=== PATIENT | female | born 1955 | race Hispanic/Latino ===

== ENCOUNTER 2018-07-27 11:40 | Emergency (ER) | payer OTHER ==
--- NOTE | 2018-07-27 13:28 | RAD REPORT ---
EXAM DESCRIPTION: RAD - Shoulder Left 2 View - 07/27/2018 12:42 pm CLINICAL HISTORY: Left shoulder pain status post fall FINDINGS: No fracture or dislocation is seen. Moderate osteoarthritis involves the AC joint
[2018-07-27] MEDS ORDERED: HYDROCODONE/APAP 10/325 TAB ONE (13:47)
--- NOTE | 2018-07-27 13:48 | ER ---
Nurse's Notes [facility] Name: Modesta Dior Age: 63 yrs Sex: Female : 1955 Arrival Date: 07/27/2018 Time: 11:42 Bed 23 Private MD: Diagnosis: Fall due to bumping against object;Shoulder lesion, unspecified, left shoulder;Essential (primary) hypertension Presentation: 07/27 12:15 Presenting complaint: Patient states: Reports slip and fall while walking today 2 hours aj [employer]. Patient reports trying to catch herself with her left arm and now has pain in left shoulder. Care prior to arrival: None. Mechanism of Injury: Fall from standing position. Trauma event details: Injury occurred in the [facility], Injury occurred: on a street or highway. Injury occurred: July 27, 2018 Injury occurred at: 10:15. 12:15 Acuity: MAIDA 2 aj 12:15 Method Of Arrival: Ambulatory aj 16:38 Transition of care: patient was not received from another setting of care. Onset of tl3 symptoms was July 27, 2018. Risk Assessment: Do you want to hurt yourself or someone else? Patient reports no desire to harm self or others. Initial Sepsis Screen: Does the patient meet any 2 criteria? No. Patient's initial sepsis screen is negative. Does the patient have a suspected source of infection? No. Patient's initial sepsis screen is negative. Trauma Activation: Not Applicable Physician: ED Physician; Name: ; Notified At: ; Arrived At: Physician: General Surgeon; Name: ; Notified At: ; Arrived At: Physician: Radiology; Name: ; Notified At: ; Arrived At: Physician: Respiratory; Name: ; Notified At: ; Arrived At: Physician: Lab; Name: ; Notified At: ; Arrived At: Historical: - Allergies: 12:18 No Known Allergies; aj - Home Meds: 12:18 None [Active]; aj - PMHx: 12:18 Hypertension; aj - PSHx: 12:18 None; aj - Immunization history: Last tetanus immunization: unknown. - Social history:: Smoking status: Patient/guardian denies using tobacco. - Ebola Screening: : Patient negative for fever greater than or equal to 101.5 degrees Fahrenheit, and additional compatible Ebola Virus Disease symptoms Patient denies exposure to infectious person Patient denies travel to an Ebola-affected area in the 21 days before illness onset No symptoms or risks identified at this time. Screenin:32 Abuse screen: Denies threats or abuse. Nutritional screening: No deficits noted. tl3 Tuberculosis screening: No symptoms or risk factors identified. Fall Risk Fall in past 12 months (25 points). Primary Survey: 12:15 NO uncontrolled hemorrhage observed. Breathing/Chest: Respiratory pattern: regular, aj Respiratory effort: spontaneous, unlabored. Circulation: Skin color: Skin temperature: warm, dry. Disability Alert. Assessment: 12:15 General: Appears in no apparent distress. comfortable, Behavior is calm, cooperative, aj appropriate for age. Pain: Complains of pain in anterior aspect of left shoulder and posterior aspect of left shoulder. Neuro: Level of Consciousness is awake, alert, obeys commands, Oriented to person, place, time, situation, Appropriate for age. Respiratory: Airway is patent Respiratory effort is even, unlabored, Respiratory pattern is regular, symmetrical. Derm: Skin is intact, is healthy with good turgor, Skin is pink, warm \T\ dry. normal. Musculoskeletal: Reports pain in anterior aspect of left shoulder and posterior aspect of left shoulder. 13:32 Reassessment: Patient and/or family updated on plan of care and expected duration. Pain tl3 level reassessed. Patient is alert, oriented x 3, equal unlabored respirations, skin warm/dry/pink. pt placed in room 23, Dr Sibley at bedside for assessment, X ray completed in triage. 15:30 Reassessment: Patient and/or family updated on plan of care and expected duration. Pain tl3 level reassessed. Patient is alert, oriented x 3, equal unlabored respirations, skin warm/dry/pink. blood pressure decreased. Vital Signs: 12:15 BP 204 / 107; Pulse 77; Resp 20; Temp 97.5; Pulse Ox 99% on R/A; Weight 68.04 kg; aj Height 4 ft. 11 in. (149.86 cm); 15:30 BP 197 / 111; Pulse 82; Resp 18; Pulse Ox 100% on R/A; tl3 12:15 Body Mass Index 30.30 (68.04 kg, 149.86 cm) aj Sae Coma Score: 12:15 Eye Response: spontaneous(4). Verbal Response: oriented(5). Motor Response: obeys aj commands(6). Total: 15. Trauma Score (Adult): 12:15 Eye Response: spontaneous(1); Verbal Response: oriented(1); Motor Response: obeys aj commands(2); Systolic BP: > 89 mm Hg(4); Respiratory Rate: 10 to 29 per min(4); Sae Score: 15; Trauma Score: 12 ED Course: 11:42 Patient arrived in ED. mr 12:16 Triage completed. aj 12:18 Arm band placed on right wrist. Patient placed in waiting room, Patient notified of aj wait time. X-ray ordered. 12:39 X-ray completed. Patient tolerated procedure well. sg4 12:41 XRAY Shoulder LEFT 2 view In Process Unspecified. EDMS 13:27 Bj iSbley MD is Attending Physician. [facility] 13:30 Dorene Pereira, SCOTT is Primary Nurse. tl3 13:32 Patient has correct armband on for positive identification. Adult w/ patient. tl3 13:32 No provider procedures requiring assistance completed. tl3 13:45 Torrey Al MD is Referral Physician. [facility] 15:30 Patient did not have IV access during this emergency room visit. tl3 Administered Medications: 13:37 Drug: Man 10 mg-325 mg 1 tabs Route: PO; tl3 16:34 Follow up: Response: No adverse reaction tl3 14:00 Drug: cloNIDine 0.1 mg Route: PO; tl3 15:00 Follow up: Response: Blood pressure is lowered tl3 14:00 Drug: Norvasc 5 mg Route: PO; tl3 16:35 Follow up: Response: Blood pressure is lowered tl3 Outcome: 13:46 Discharge ordered by . [facility] 15:30 Discharged to home ambulatory. tl3 15:30 Condition: stable 15:30 Discharge instructions given to patient, Instructed on discharge instructions, follow up and referral plans. medication usage, Demonstrated understanding of instructions, follow-up care, medications, Prescriptions given X 2. 16:38 Patient left the ED. tl3 Signatures: Dispatcher [employer] EDMS Elma Daniel, RN Bj Castro MD MD cha Rivera, Mary mr Dorene Pereira RN RN tl3 Dyan Pyle sg4
--- NOTE | 2018-07-27 13:48 | EDPHYS ---
Physician Documentation [facility] Name: Modesta Dior Age: 63 yrs Sex: Female : 1955 Arrival Date: 07/27/2018 Time: 11:42 Bed 23 Private MD: ED Physician Bj Sibley HPI: 07/27 13:41 This 63 yrs old Female presents to ER via Ambulatory with complaints of Fall frankie Injury. 13:41 Details of fall: The patient fell from an upright position, while walking. Onset: The frankie symptoms/episode began/occurred yesterday. Associated injuries: The patient sustained anterior aspect of left shoulder and posterior aspect of left shoulder, decreased range of motion, painful injury. Severity of symptoms: At their worst the symptoms were mild, moderate, in the emergency department the symptoms are unchanged. The patient has not experienced similar symptoms in the past. Historical: - Allergies: 12:18 No Known Allergies; aj - Home Meds: 12:18 None [Active]; aj - PMHx: 12:18 Hypertension; aj - PSHx: 12:18 None; aj - Immunization history: Last tetanus immunization: unknown. - Social history:: Smoking status: Patient/guardian denies using tobacco. - Ebola Screening: : Patient negative for fever greater than or equal to 101.5 degrees Fahrenheit, and additional compatible Ebola Virus Disease symptoms Patient denies exposure to infectious person Patient denies travel to an Ebola-affected area in the 21 days before illness onset No symptoms or risks identified at this time. ROS: 13:42 Constitutional: Negative for fever, chills, and weight loss, Eyes: Negative for injury, frankie pain, redness, and discharge, ENT: Negative for injury, pain, and discharge, Neck: Negative for injury, pain, and swelling, Cardiovascular: Negative for chest pain, palpitations, and edema, Respiratory: Negative for shortness of breath, cough, wheezing, and pleuritic chest pain, Abdomen/GI: Negative for abdominal pain, nausea, vomiting, diarrhea, and constipation, Back: Negative for injury and pain, : Negative for injury, bleeding, discharge, and swelling, Skin: Negative for injury, rash, and discoloration, Neuro: Negative for headache, weakness, numbness, tingling, and seizure, Psych: Negative for depression, anxiety, suicide ideation, homicidal ideation, and hallucinations, Allergy/Immunology: Negative for hives, rash, and allergies, Endocrine: Negative for neck swelling, polydipsia, polyuria, polyphagia, and marked weight changes, Hematologic/Lymphatic: Negative for swollen nodes, abnormal bleeding, and unusual bruising. 13:42 MS/extremity: Positive for decreased range of motion, pain, tenderness, of the left arm. Exam: 13:42 Constitutional: This is a well developed, well nourished patient who is awake, alert, frankie and in no acute distress. Head/Face: Normocephalic, atraumatic. Eyes: Pupils equal round and reactive to light, extra-ocular motions intact. Lids and lashes normal. Conjunctiva and sclera are non-icteric and not injected. Cornea within normal limits. Periorbital areas with no swelling, redness, or edema. ENT: Nares patent. No nasal discharge, no septal abnormalities noted. Tympanic membranes are normal and external auditory canals are clear. Oropharynx with no redness, swelling, or masses, exudates, or evidence of obstruction, uvula midline. Mucous membranes moist. Neck: Trachea midline, no thyromegaly or masses palpated, and no cervical lymphadenopathy. Supple, full range of motion without nuchal rigidity, or vertebral point tenderness. No Meningismus. Chest/axilla: Normal chest wall appearance and motion. Nontender with no deformity. No lesions are appreciated. Cardiovascular: Regular rate and rhythm with a normal S1 and S2. No gallops, murmurs, or rubs. Normal PMI, no JVD. No pulse deficits. Respiratory: Lungs have equal breath sounds bilaterally, clear to auscultation and percussion. No rales, rhonchi or wheezes noted. No increased work of breathing, no retractions or nasal flaring. Abdomen/GI: Soft, non-tender, with normal bowel sounds. No distension or tympany. No guarding or rebound. No evidence of tenderness throughout. Back: No spinal tenderness. No costovertebral tenderness. Full range of motion. Skin: Warm, dry with normal turgor. Normal color with no rashes, no lesions, and no evidence of cellulitis. Neuro: Awake and alert, GCS 15, oriented to person, place, time, and situation. Cranial nerves II-XII grossly intact. Motor strength 5/5 in all extremities. Sensory grossly intact. Cerebellar exam normal. Normal gait. Psych: Awake, alert, with orientation to person, place and time. Behavior, mood, and affect are within normal limits. 13:42 Musculoskeletal/extremity: Extremities: noted in the posterior aspect of left shoulder: decreased ROM, pain. Vital Signs: 12:15 BP 204 / 107; Pulse 77; Resp 20; Temp 97.5; Pulse Ox 99% on R/A; Weight 68.04 kg; Height 4 ft. 11 in. (149.86 cm); 15:30 BP 197 / 111; Pulse 82; Resp 18; Pulse Ox 100% on R/A; tl3 12:15 Body Mass Index 30.30 (68.04 kg, 149.86 cm) Sae Coma Score: 12:15 Eye Response: spontaneous(4). Verbal Response: oriented(5). Motor Response: obeys aj commands(6). Total: 15. Trauma Score (Adult): 12:15 Eye Response: spontaneous(1); Verbal Response: oriented(1); Motor Response: obeys aj commands(2); Systolic BP: > 89 mm Hg(4); Respiratory Rate: 10 to 29 per min(4); [place] Score: 15; Trauma Score: 12 MDM: 13:27 Patient medically screened. [facility] 13:44 Data reviewed: vital signs, nurses notes, radiologic studies, plain films. [facility] 07/27 12:18 Order name: XRAY Shoulder LEFT 2 view 07/27 13:38 Order name: Sling; Complete Time: 13:38 3 07/27 13:41 Order name: Ice pack; Complete Time: 16:34 [facility] Administered Medications: 13:37 Drug: [place] 10 mg-325 mg 1 tabs Route: PO; tl3 16:34 Follow up: Response: No adverse reaction tl3 14:00 Drug: cloNIDine 0.1 mg Route: PO; tl3 15:00 Follow up: Response: Blood pressure is lowered tl3 14:00 Drug: Norvasc 5 mg Route: PO; tl3 16:35 Follow up: Response: Blood pressure is lowered tl3 Disposition: 07/27/18 13:46 Discharged to Home. Impression: Fall due to bumping against object, Shoulder lesion, unspecified, left shoulder, Essential (primary) hypertension. - Condition is Stable. - Discharge Instructions: Hypertension, Shoulder Pain, Shoulder Pain, [id number], Hypertension, [id number], Fall Prevention in the Home, [id number], How to Take Your Blood Pressure, [id number], Shoulder Sprain, Managing Your Hypertension. - Prescriptions for Tylenol- Codeine #3 300-30 mg Oral Tablet - take 2 tablets by ORAL route every 6 hours As needed; 26 tablet. Motrin IB 200 mg Oral Tablet - take 2 tablet by ORAL route every 6 hours As needed as needed with food; 20 tablet. Norvasc 5 mg Oral Tablet - take 1 tablet by ORAL route once daily; 20 tablet. - Medication Reconciliation Form, Thank You Letter, Antibiotic Education, Prescription Opioid Use, Work release form form. - Follow up: Private Physician; When: 2 - 3 days; Reason: Recheck today's complaints, Continuance of care, Re-evaluation by your physician. Follow up: Torrey Al MD; When: 2 - 3 days; Reason: Recheck today's complaints, Continuance of care, Re-evaluation by your physician. - Problem is new. - Symptoms have improved. Signatures: Dispatcher [employer] EDElma Landry RN RN aj Anderson, Corey, MD MD cha Lowrey, Tammy, RN RN tl3 Corrections: (The following items were deleted from the chart) 13:58 13:46 07/27/2018 13:46 Discharged to Home. Impression: Fall due to bumping against frankie object; Shoulder lesion, unspecified, left shoulder. Condition is Stable. Forms are Medication Reconciliation Form, Thank You Letter, Antibiotic Education, Prescription Opioid Use. Follow up: Private Physician; When: 2 - 3 days; Reason: Recheck today's complaints, Continuance of care, Re-evaluation by your physician. Follow up: Torrey Al; When: 2 - 3 days; Reason: Recheck today's complaints, Continuance of care, Re-evaluation by your physician. Problem is new. Symptoms have improved. [facility] 16:38 13:58 07/27/2018 13:46 Discharged to Home. Impression: Fall due to bumping against tl3 object; Shoulder lesion, unspecified, left shoulder; Essential (primary) hypertension. Condition is Stable. Discharge Instructions: Shoulder Pain, Shoulder Pain, [id number], Fall Prevention in the Home, [id number], Shoulder Sprain. Prescriptions for Tylenol-Codeine #3 300-30 mg Oral Tablet - take 2 tablets by ORAL route every 6 hours As needed; 26 tablet, Motrin IB 200 mg Oral Tablet - take 2 tablet by ORAL route every 6 hours As needed as needed with food; 20 tablet. and Forms are Medication Reconciliation Form, Thank You Letter, Antibiotic Education, Prescription Opioid Use, Work release form. Follow up: Private Physician; When: 2 - 3 days; Reason: Recheck today's complaints, Continuance of care, Re-evaluation by your physician. Follow up: Torrey Al; When: 2 - 3 days; Reason: Recheck today's complaints, Continuance of care, Re-evaluation by your physician. Problem is new. Symptoms have improved. frankie
[2018-07-27] MEDS ORDERED: cloNIDine HCl 0.1 MG TAB ONE (14:11)
[2018-07-27] MEDS ORDERED: AMLODIPINE 5 MG TAB ONE (14:11)
== END 2018-07-27 16:38 | disposition home or self-care (01) ==
LOC: ER 11:40
DX: M75.92 Shoulder lesion, unspecified, left shoulder (principal); I10 Essential (primary) hypertension; W18.00XA Striking against unspecified object with subsequent fall, initial encounter; Y93.01 Activity, walking, marching and hiking; Y92.9 Unspecified place or not applicable
CPT/HCPCS: 99283